=== PATIENT | female | born 1990 | race Caucasian/White ===

== ENCOUNTER 2017-04-28 05:39 | Emergency (ER) | payer OTHER ==
[~2017-04-28] VITALS: Ht 157.5 cm; Wt 68.0 kg
[~2017-04-28 05:39] MED LIST: AMOX500C2 PO; PRENAT PO
[2017-04-28 05:48] VITALS: Ht 157.5 cm; Wt 68.0 kg
[2017-04-28] MEDS ORDERED: ONDANSETRON (ODT) 4 MG TAB ODT STA (06:32)
[2017-04-28 06:51] LABS: URINE BLOOD (Dip) POC 1+ (NEGATIVE)
[2017-04-28] MEDS ORDERED: FAMOTIDINE 20 MG TAB PO ONE (07:00)
[2017-04-28] MEDS ORDERED: LIDOCAINE/MYLANTA 40 ML BTL PO ONE (07:00)
[2017-04-28] MEDS ORDERED: HYDROCODONE/APAP (5/325) TAB PO ONE (07:00)
--- NOTE | 2017-04-28 07:40 | RADRPT ---
PROCEDURE: US Abdomen (right upper quadrant). CLINICAL INDICATION: Right upper quadrant abdomen pain. TECHNIQUE: Multiple real-time longitudinal and transverse images of the right upper quadrant of th e abdomen were acquired utilizing a curved array transducer. Images were reviewed on a high-resoluti on PACS workstation. COMPARISON: 06/03/2013 FINDINGS: The liver is normal in size and normal in echogenicity. There is no focal hepatic lesion. The gallbladder is normal with no stones or wall thickening. There is no pericholecystic fluid tiki ection. The bile ducts are normal with the common bile duct measuring 3.2 mm in diameter. The visualized portions of the pancreas are unremarkable with obscuration of the tail of the pancrea s. No free fluid is present. The right kidney measures cm. There is normal echogenicity of the right kidney. There is no radha nephric fluid collection. No hydronephrosis, mass, or calculus is seen. IMPRESSION: 1. Unremarkable right upper quadrant abdomen ultrasound. 2. No change from 06/03/2013. RPTAT: QQ .Johnny Weldon MD, Date Time Electronically viewed and signed by .Johnny Weldon MD, on 04/28/2017 07:40 .R/
[2017-04-28] MEDS ORDERED: ACET1TAB40 PO (07:46)
[2017-04-28] MEDS ORDERED: PANT40TA3 PO (07:46)
--- NOTE | 2017-04-28 07:49 | ERD ---
ER Documentation Chief Complaint Date/Time DATE: 04/28/17 TIME: 07:47 Chief Complaint Pt reports upper abd pain after eating spicey food HPI This 19-year-old female complains of epigastric abdominal pain, vomiting diarrhea started early this morning. She denies fevers. She has a history of gastritis and was previously on proton pump inhibitors but she has been symptom- free for the last year and not taking medication. There are no sick contacts, history of foreign travel. She denies . She denies lower abdominal pain. ROS All systems reviewed and are negative except as per history of present illness. Medications Home Meds Active Scripts Acetaminophen with Codeine (Acetaminophen-Cod #3 Tablet) 1 Each Tablet, 1 TAB PO Q6H, #7 TAB Prov:ROBERT CEDEÑO MD 04/28/17 Pantoprazole* (Protonix*) 40 Mg Tablet.dr, 40 MG PO DAILY for 14 Days, TAB Prov:ROBERT CEDEÑO MD 04/28/17 Amoxicillin* (Amoxicillin*) 500 Mg Cap, 500 MG PO TID for 7 Days, CAP Prov:JARED GONZALEZ 08/16/15 Reported Medications Multivit/Min/Fol Ac/Iron/Pren* ( S*) 1 Tab Tab, 1 TAB PO DAILY, TAB 03/07/14 Allergies Allergies: Coded Allergies: No Known Allergy (Unverified , 04/28/17) PMhx/Soc Medical and Surgical Hx: pt denies Medical Hx History of Surgery: Yes (TUBAL ) Anesthesia Reaction: No Hx Neurological Disorder: No Hx Respiratory Disorders: No Hx Cardiac Disorders: No Hx Psychiatric Problems: No Hx Miscellaneous Medical Probl: No Hx Alcohol Use: No Hx Substance Use: No Hx Tobacco Use: No Physical Exam Vitals Vital Signs Date Time Temp Pulse Resp B/P Pulse Ox O2 Delivery O2 Flow Rate FiO2 04/28/17 05:48 98.9 65 16 100/66 99 Physical Exam Const: [] Alert, [id number]. Head: Atraumatic Eyes: Normal Conjunctiva ENT: Normal External Ears, Nose and Mouth. Neck: Full range of motion..~ No meningismus. Resp: Clear to auscultation bilaterally Cardio: Regular rate and rhythm, no murmurs Abd: Soft, in the epigastric area , non distended. Normal bowel sounds. No tenderness at McBurney's point no Wagner sign. Skin: No petechiae or rashes Back: No midline or flank tenderness Ext: No cyanosis, or edema Neur: Awake and alert Psych: Normal Mood and Affect Results 24 hrs Laboratory Tests Test 04/28/17 06:58 Bedside Urine pH (LAB) 5.5 Bedside Urine Protein (LAB) Negative Bedside Urine Glucose (UA) Negative Bedside Urine Ketones (LAB) Negative Bedside Urine Blood 1+ Bedside Urine Nitrite (LAB) Negative Bedside Urine Leukocyte Esterase (L Negative Current Medications Medications (Trade) Dose Ordered Sig/Faizan Route PRN Reason Start Time Stop Time Status Last Admin Dose Admin Ondansetron HCl (Zofran Odt) 8 mg ONCE STAT ODT 04/28/17 06:32 04/28/17 06:34 DC 04/28/17 06:46 Famotidine (Pepcid) 20 mg ONCE ONCE PO 04/28/17 07:00 04/28/17 07:01 DC 04/28/17 06:46 Miscellaneous Medication (Gi Cocktail (2)) 40 ml ONCE ONCE PO 04/28/17 07:00 04/28/17 07:01 DC 04/28/17 06:47 Acetaminophen/ Hydrocodone Bitart (Paris (5/325)) 1 tab ONCE ONCE PO 04/28/17 07:00 04/28/17 07:01 DC 04/28/17 06:47 Procedures/MDM This was given Pepcid by mouth and GI cocktail. HCG is negative and urine is negative for significant acute findings. Right upper quadrant ultrasound read as normal by the radiologist. Patient is given Zofran and one [place] as well. Patient presents with epigastric pain and vomiting diarrhea since this morning. She may have gastritis or gastroenteritis. Current signs or symptoms do not suggest hepatobiliary disease, UTI, appendicitis, ovarian torsion, aortic disease, acute abdomen. She will be treated with Protonix, Tylenol and observation at home, primary care follow-up and return precautions. The patient was stable with no new complaints during the ER course. Clinically, there is no current evidence to suggest meningitis, sepsis, acute abdomen, pneumonia, acute coronary syndrome, pulmonary embolism, or any other emergent condition appearing to require further evaluation or hospitalization. The patient should certainly return for any new or worsening symptoms per the aftercare instructions. They should otherwise follow-up with her primary care doctor for reevaluation this week. Departure Diagnosis: Primary Impression: Abdominal pain Abdominal location: unspecified location Qualified Code: R10.9 - Abdominal pain, unspecified abdominal location Condition: Stable Patient Instructions: Abdominal Pain, Gastritis (Adult) Additional Instructions: Urine and ultrasound normal. Likely gastritis. Avoid spicy or acidic foods. Follow-up with primary doctor and possibly gastroenterology for persistent symptoms, lower abdominal pain, new worsening symptoms. ROBERT CEDEÑO MD Apr 28, 2017 07:49
[2017-04-28] MEDS ORDERED: ONDA8TAB14 PO (07:50)
[2017-04-28] MEDS ORDERED: ACET500C5 PO (07:50)
== END 2017-04-28 08:26 | disposition home or self-care (01) ==
LOC: FTE 05:39
DX: R10.13 Epigastric pain (principal); R11.10 Vomiting, unspecified
CPT/HCPCS: 76705; 81003; Z7502; Z7610

== ENCOUNTER 2018-12-14 09:34 | Emergency (ER) | payer OTHER ==
[~2018-12-14] VITALS: Ht 162.6 cm; Wt 70.0 kg
[~2018-12-14 09:34] MED LIST changes: +ACET500C5 PO; +ONDA8TAB14 PO; +PANT40TA3 PO
[2018-12-14 09:36] VITALS: Ht 162.6 cm; Wt 70.0 kg
[2018-12-14] MEDS ORDERED: KETOROLAC 30 MG INJ IM STA (10:28)
[2018-12-14] MEDS ORDERED: IBUP-1542 PO (10:56)
--- NOTE | 2018-12-14 11:18 | ERD ---
ER Documentation Chief Complaint Chief Complaint RT KNEE PAIN FROM SOCCER INJURY YESTERDAY HPI This is a 28-year-old woman complaining of right knee pain and difficulty ambulating since yesterday after twisting injury to the right knee while foot was firmly planted on the ground. She states knee underwent twisting mechanism and she felt a pop and had pain with flexion and extension and difficulty ambulating since then. She denies any redness or swelling, denies any direct trauma to the knee, no ankle or foot pain, no fevers or chills, no chest pain or shortness of breath. Patient denies calf or leg swelling. ROS All systems reviewed and are negative except as per history of present illness. Medications Home Meds Active Scripts Ibuprofen* (Motrin*) 600 Mg Tab, 600 MG PO Q8 PRN for PAIN AND/OR INFLAMMATION, #30 TAB Prov:CURTIS EGAN MD 12/14/18 Acetaminophen* (Tylophen*) 500 Mg Capsule, 1 CAP PO Q6H PRN for PAIN AND OR ELEVATED TEMP, #15 CAP Prov:ROBERT CEDEÑO MD 04/28/17 Ondansetron (Ondansetron Odt) 8 Mg Tab.rapdis, 8 MG PO Q6H PRN for NAUSEA AND/OR VOMITING, #6 TAB Prov:ROBERT CEDEÑO MD 04/28/17 Pantoprazole* (Protonix*) 40 Mg Tablet.dr, 40 MG PO DAILY for 14 Days, TAB Prov:ROBERT CEDEÑO MD 04/28/17 Amoxicillin* (Amoxicillin*) 500 Mg Cap, 500 MG PO TID for 7 Days, CAP Prov:JARED GONZALEZ 08/16/15 Reported Medications Multivit/Min/Fol Ac/Iron/Pren* ( S*) 1 Tab Tab, 1 TAB PO DAILY, TAB 03/07/14 Allergies Allergies: Coded Allergies: No Known Allergy (Unverified , 04/28/17) PMhx/Soc History of Surgery: Yes (TUBAL ) Anesthesia Reaction: No Hx Neurological Disorder: No Hx Respiratory Disorders: No Hx Cardiac Disorders: No Hx Psychiatric Problems: No Hx Miscellaneous Medical Probl: No Hx Alcohol Use: No Hx Substance Use: No Hx Tobacco Use: No Smoking Status: Never smoker FmHx Family History: No diabetes Physical Exam Vitals Vital Signs Date Temp Pulse Resp B/P (MAP) Pulse Ox O2 O2 Flow FiO2 Time Delivery Rate 12/14/18 98.0 77 18 132/77 98 09:36 (95) Physical Exam Const: No acute distress Resp: Clear to auscultation bilaterally Cardio: Regular rate and rhythm, no murmurs Abd: Soft, non tender, non distended. Normal bowel sounds Skin: No petechiae or rashes Back: No midline or flank tenderness Ext: No cyanosis, or edema. Active range of motion limited at the right knee due to pain although passive range of motion within normal limits, right knee complex is stable to varus and valgus stress maneuvers, anterior and posterior drawer signs are negative. Distal pulses equal bilateral Neur: Awake and alert x3, no focal deficits or facial asymmetry Psych: Normal Mood and Affect Results 24 hrs Laboratory Tests Test 12/14/18 10:53 POC Beta HCG, Qualitative NEGATIVE Current Medications Medications Dose Sig/Faizan Start Time Status Last (Trade) Ordered Route PRN Stop Time Admin Dose Reason Admin Ketorolac 30 mg ONCE STAT 12/14/18 DC 12/14/18 Tromethamine IM 10:28 11:00 (Toradol) 12/14/18 10:30 Procedures/MDM X-ray right knee 3V Interpreted by me: Bones: No fracture Joints: No dislocation Foreign body: None Administered Toradol 30 mg IM x1. The patient has an obvious knee sprain although more serious she may have suffered a ligamentous tear although this will have to be imaged and diagnosed as an outpatient using MRI. I recommend that she follow-up with an orthopedic physician for MR imaging and continued outpatient management. She understood instructions and agreed to plan. I placed the right lower extremity in a knee immobilizer for comfort and supportive measures. Splint Assessment: Neurovascularly intact post splint placement with good fit. Patient feels much better at this time, and vital signs are normal, symptoms have improved. I did give strict instructions to return to the ED if symptoms continue or worsen, patient will otherwise follow-up with primary care physician. Patient understood instructions and agreed to plan. Disclaimer: Inadvertent spelling and grammatical errors are likely due to EHR/dictation software use and do not reflect on the overall quality of patient care. Also, please note that the electronic time recorded on this note does not necessarily reflect the actual time of the patient encounter. Departure Diagnosis: Primary Impression: Knee sprain Encounter type: initial encounter Involved ligament of knee: unspecified ligament Laterality: right Qualified Codes: S83.91XA - Sprain of unspecified site of right knee, initial encounter Condition: Good Patient Instructions: Knee Sprain, Knee Sprain: Collateral Ligaments Referrals: FRANNIE MONTALVO MD, [place] MD ZOHRABIAN, DAVID MD December 14, 2018 11:18
== END 2018-12-14 11:38 | disposition home or self-care (01) ==
LOC: FTE 09:34
DX: S83.91XA Sprain of unspecified site of right knee, initial encounter (principal); X50.1XXA Overexertion from prolonged static or awkward postures, initial encounter; Y92.322 Soccer field as the place of occurrence of the external cause
CPT/HCPCS: 29505; 73562; 81025; 96372; J1885; Z7502; Z7610